=== PATIENT | male | born 1945 | race Caucasian/White ===

== ENCOUNTER 2019-09-08 10:23 | Day surgery (SDC) | payer MEDICARE ==
--- NOTE | 2019-09-08 07:08 | History and Physical - [place] ---
CHIEF COMPLAINT/HISTORY OF CHIEF COMPLAINT: This patient presents with a history of intractable post lumbar laminectomy syndrome and an intraspinal infusion system infusing Fentanyl and Bupivacaine. This patient has had multiple spinal surgeries, the most recent performed after the spinal implant seemed to be controlling pain. Because of the side effects related to the spinal implant along with the success of his last surgery he has had a slow series of titrations reducing the spinal infusion overtime. He is currently at a dose which will allow the removal, he is requesting removal of the device. PAST MEDICAL HISTORY: Hypertension, bladder dysfunction, renal disease, and peripheral neuropathy. PAST SURGICAL HISTORY: Lumbar spinal surgery pump implant. MEDICATIONS ON ADMISSION: List to be provided. ALLERGIES: BENTYL, NAFCILLIN, AND VANCOMYCIN. FAMILY/PSYCHOSOCIAL HISTORY: Family history - Diabetes, coronary artery disease, hypertension, and cancer. SYSTEMS REVIEW: The patient is appropriate in no acute distress. The remainder of the systems review is positive for headaches, sleep disturbance and peripheral edema. PHYSICAL EXAMINATION: Height is 6', weight is 280. No vital signs. HEENT: Within normal limits. LUNGS: Clear. HEART: Rapid and regular. ABDOMEN: Nontender. MUSCULOSKELETAL: Examination of the musculoskeletal system shows the pump at the left posterior gluteal margin, incisional sites of the catheter approximating L3. All incisions are intact. Underlying pain pattern post laminectomy, there is a bilateral lower extremity component. NEUROLOGIC: Cranial nerves are intact. IMPRESSION: 1. POST LUMBAR LAMINECTOMY SYNDROME, ICD-10 CODE M96.1 WITH RADICULOPATHY, ICD- 10 CODE M54.16 AND M54.17. 2. IMPLANTED SPINAL INFUSION SYSTEM NONFUNCTIONAL. PLAN: The patient is here for removal of the pump and catheter on an outpatient basis. The risks, side effect, and complications have all been reviewed and discussed. cc: Dr. Geneva Mojica JOB NUMBER: [id number] MTDD
[~2019-09-08 10:23] MED LIST: ACETAMINOPHEN 1,000 MG/100 ML BTL IVPB ONE; CEFAZOLIN 1 Gram 1 GM/50 ML BAG IVPB ONE; CEFAZOLIN 2 Gram 2 GM/50 ML BAG IVPB ONE; FAMOTIDINE 20MG TABLET PO ONE; MECLIZINE 25 MG TABLET PO ONE; METOCLOPRAMIDE 10 MG TABLET PO ONE
[2019-09-08] MEDS ORDERED: MIDAZOLAM HCL 2MG/2ML VIAL IV ONE (10:24)
[2019-09-08] MEDS ORDERED: LIDOCAINE 2% MDV (20MG/ML) 20ML VIAL IV ONE (10:24)
[2019-09-08] MEDS ORDERED: LABETALOL HCL 5MG/ML, 20ML VIAL IV ONE (10:24)
[2019-09-08] MEDS ORDERED: PROPOFOL 10 MG/ML VIAL IV ONE (10:24)
[2019-09-08] MEDS ORDERED: FENTANYL PF 100MCG/2ML VIAL IV ONE (10:24)
[2019-09-08] MEDS ORDERED: 0.9 % SODIUM CHLORIDE 1000ML 1,000 ML IV ONE (11:15)
[2019-09-08] MEDS ORDERED: CEFAZOLIN 1G VIAL IR ONE (13:45)
[2019-09-08] MEDS ORDERED: BUPIVACAINE 0.5% W/EPI MPF 30 ML VIAL SQ ONE (13:45)
[2019-09-08] MEDS ORDERED: LIDOCAINE 1% W/EPI 1:200,000 MPF 30ML SQ ONE (13:45)
--- NOTE | 2019-09-10 13:10 | Operative Note ---
DATE OF SURGERY: 09/08/2019 PREOPERATIVE DIAGNOSES: 1. Post lumbar laminectomy syndrome, ICD10 code M96.1, with radiculopathy, ICD10 code M54.16 and M54.17. 2. Implanted spinal infusion system with spinal catheter nonfunctional. OPERATION: 1. Incision, subcutaneous dissection, and removal of implanted spinal catheter with anchor midline L3-4. 2. Incision, subcutaneous dissection, and removal of programmable pump and catheter component at left posterior gluteal margin. SURGEON: Sai Friedman DO ANESTHESIA: Local with sedation. ANESTHESIA PROVIDER: Ky Kelley INDICATION: This patient presents with a history of intractable post lumbar laminectomy radiculopathy. Approximately 5-6 years ago, an implanted pump was placed to manage pain. Over the last year or so, this patient has been slowly titrating his medication down in the pump after a successful third spinal surgery. By his request, he is here for removal of device. PROCEDURE: Intravenous line, vital sign monitoring, IV sedation. Prepped and draped sterile technique. Under imaging, midline incision for the catheter was identified under fluoroscopy. The incision was infiltrated. Incision made and subcutaneous dissection was conducted to the deep fascia. The anchoring device was identified, suture cut. A pursestring suture placed and the spinal catheter was removed from the spinal space as the pursestring suture was tightened stopping CSF leak. At the left posterior gluteal margin pump pouch, skin infiltrated, incision made, subcutaneous dissection was conducted to the pouch. The pouch was opened, the pump exteriorized and removed along with its catheter components. Antibiotic irrigation, Bovie for hemostasis. The incisions were then closed using Stratafix, 2-0 fascia, 3-0 skin, Dermabond closure. He was transported to the recovery room stable. No side effects from the procedure or sedation. When awake and alert, he was prepared for discharge by his request. DISCHARGE INSTRUCTIONS: 1. Sites to remain clean and dry. No showering or bathing in any way that would disrupt dressings. If it happens, contact the clinic. 2. Standard medications resumed including the antibiotic Levaquin 500 mg once a day for 14 days. 3. Office to contact the patient in 12-24 hours to set up a time in 7-10 days for us to evaluate the sites. Until then, he is to keep his activities low. All other instructions provided, numbers to contact if problems given. A prescription for pain medications for 7 days has been provided. He will be evaluated in the office. DEVAN
== END 2019-09-08 14:30 | disposition home or self-care (01) ==
LOC: SUR 10:23
PROVIDERS: ATTEND Pain Medicine Interventional Pain Medicine
DX: M96.1 Postlaminectomy syndrome, not elsewhere classified (principal); M54.16 Radiculopathy, lumbar region; M54.17 Radiculopathy, lumbosacral region; T85.690A Other mechanical complication of cranial or spinal infusion catheter, initial encounter; I50.9 Heart failure, unspecified; I10 Essential (primary) hypertension; E78.00 Pure hypercholesterolemia, unspecified; E11.9 Type 2 diabetes mellitus without complications; M10.9 Gout, unspecified; Z79.4 Long term (current) use of insulin; I25.10 Atherosclerotic heart disease of native coronary artery without angina pectoris; Z95.5 Presence of coronary angioplasty implant and graft; I48.91 Unspecified atrial fibrillation; E03.9 Hypothyroidism, unspecified; Z95.0 Presence of cardiac pacemaker; Z95.810 Presence of automatic (implantable) cardiac defibrillator
CPT/HCPCS: 62355; 62365; 00300; Q9967; J3010; J0690 ×2; J7030